=== PATIENT | male | born 1945 | race Caucasian/White ===

== ENCOUNTER 2019-05-01 13:58 | Outpatient (REF) | payer MEDICARE, OTHER, SELFPAY ==
[2019-05-02 12:12] LABS: Calculated LDL 121; Cholesterol 182 mg/dL (50-200); HDL Cholesterol 52 mg/dL (40-60); Triglyceride 46 mg/dL (30-150)
== END 2019-05-01 14:18 ==
LOC: NCHCN 13:58
PROVIDERS: PCP Nurse Practitioner Family; Visit Provider Family Medicine
DX: E78.5 Hyperlipidemia, unspecified (principal)
CPT/HCPCS: 80061; 83721

== ENCOUNTER 2021-11-01 17:17 | Outpatient (REF) | payer MEDICARE, SELFPAY ==
[2021-11-01 21:44] LABS: ALT 25 U/L (16-63); AST 15 U/L (15-37); Albumin 3.7 g/dL (3.4-5.0); Alkaline Phosphatase 96 U/L (46-116); Anion Gap 6.9 mmol/L (3-11); BUN 16 mg/dL (7-18); Bilirubin, Total 0.4 mg/dL (0.2-1.0); CO2 29.1 mmol/L (21.0-32.0); Calcium 8.9 mg/dL (8.5-10.1); Calculated LDL 113 mg/dL (<100); Chloride 104 mmol/L (98-107); Cholesterol 184 mg/dL (<200); Glucose 91 mg/dL (74-106); HDL Cholesterol 49 mg/dL (40-60); Potassium 4.5 mmol/L (3.5-5.1); Sodium 140 mmol/L (136-145); Total Protein 6.2 g/dL (6.4-8.2); Triglyceride 110 mg/dL (<150)
== END 2021-11-01 17:18 | disposition home or self-care (01) ==
LOC: NCHCN 17:17
PROVIDERS: PCP Nurse Practitioner Family; Visit Provider Family Medicine
DX: E78.5 Hyperlipidemia, unspecified (principal)
CPT/HCPCS: 80053; 80061

== ENCOUNTER 2022-07-28 12:44 | Outpatient (REF) | payer MEDICARE, SELFPAY ==
[2022-07-28 22:24] LABS: Calculated LDL 115 mg/dL (<100); Cholesterol 182 mg/dL (<200); HDL Cholesterol 46 mg/dL (40-60); Triglyceride 106 mg/dL (<150)
[2022-07-31 08:47] LABS: PSA, Screening 2.6 ng/mL (<=6.5)
== END 2022-07-28 12:45 | disposition home or self-care (01) ==
LOC: NCHCN 12:44
PROVIDERS: PCP Nurse Practitioner Family; Visit Provider Family Medicine
DX: E78.5 Hyperlipidemia, unspecified (principal); Z12.5 Encounter for screening for malignant neoplasm of prostate
CPT/HCPCS: 80061; 84153

== ENCOUNTER 2023-12-04 18:37 | Outpatient (REF) | payer MEDICARE, SELFPAY ==
[2023-12-04 22:06] LABS: HCT 43.7 % (40.0-50.0); HGB 14.8 g/dL (13.5-17.5); MCH 31.6 pg (27.0-33.0); MCHC 33.9 % (32.0-36.0); MCV 93 fL (80-95); MPV 11.6 fL (8.0-11.0); Platelet Count 252 10^3/uL (130-400); RBC 4.69 10^6/uL (4.36-5.78); RDW 12.3 % (11.8-14.1); RDW-SD 42.3 fL; WBC 6.71 10^3/uL (4.4-10.8)
[2023-12-04 22:14] LABS: ESR 13 mm/hr (0-20)
[2023-12-04 22:29] LABS: ALT 25 U/L (16-63); AST 21 U/L (15-37); Albumin 3.3 g/dL (3.4-5.0); Alkaline Phosphatase 99 U/L (46-116); Anion Gap 5.5 mmol/L (3-11); BUN 17 mg/dL (7-18); Bilirubin, Total 0.4 mg/dL (0.2-1.0); C-Reactive Protein 0.85 mg/dL (0.0-0.3); CO2 30.5 mmol/L (21.0-32.0); CREATININE 0.9 mg/dL (0.70-1.30); Calcium 9.2 mg/dL (8.5-10.1); Chloride 106 mmol/L (98-107); Estimated GFR 86.34 (mL/min/1.73m2); Glucose 98 mg/dL (74-106); Potassium 4.6 mmol/L (3.5-5.1); Sodium 142 mmol/L (136-145); Total Protein 6.9 g/dL (6.4-8.2)
== END 2023-12-04 18:38 | disposition home or self-care (01) ==
LOC: NCHCN 18:37
PROVIDERS: PCP Nurse Practitioner Family; Visit Provider Family Medicine
DX: R53.83 Other fatigue (principal)
CPT/HCPCS: 80053; 85027; 85652; 86140

== ENCOUNTER 2024-07-25 18:29 | Outpatient (REF) | payer MEDICARE, SELFPAY ==
[2024-07-25 21:55] LABS: HCT 48.5 % (40.0-50.0); HGB 16.3 g/dL (13.5-17.5); MCH 32.4 pg (27.0-33.0); MCHC 33.6 % (32.0-36.0); MCV 96 fL (80-95); Platelet Count 196 10^3/uL (130-400); RBC 5.03 10^6/uL (4.36-5.78); RDW 12.7 % (11.8-14.1); RDW-SD 45.1 fL; WBC 12.85 10^3/uL (4.4-10.8)
[2024-07-25 21:57] LABS: Bilirubin Small (Negative); Blood Trace-intact (Negative); Clarity Sl Cloudy (Clear); Glucose Negative (Negative); Ketones 80 mg/dL (Negative); Leukocyte Esterase Large (Negative); Nitrite Negative (Negative); Urobilinogen 0.2 mg/dL (Up to 0.2); pH 5.5 (5-8)
[2024-07-25 22:08] LABS: C & S Indicated? Yes; WBC >50 HPF (0-5)
[2024-07-25 22:21] LABS: ALT 25 U/L (16-63); AST 16 U/L (15-37); Albumin 3.8 g/dL (3.4-5.0); Alkaline Phosphatase 107 U/L (46-116); Anion Gap 9.2 mmol/L (3-11); BUN 15 mg/dL (7-18); Bilirubin, Total 1.19 mg/dL (0.2-1.0); CO2 30.8 mmol/L (21.0-32.0); Calcium 9.2 mg/dL (8.5-10.1); Chloride 101 mmol/L (98-107); Estimated GFR 75.61 (mL/min/1.73m2); Glucose 120 mg/dL (74-106); Potassium 4.2 mmol/L (3.5-5.1); Sodium 141 mmol/L (136-145); TSH (W/Ref FT4) 0.64 uIU/mL (0.36-3.74); Total Protein 6.9 g/dL (6.4-8.2)
[2024-07-28 08:52] LABS: PSA, Diagnostic 1.9 ng/mL (<=6.5)
== END 2024-07-25 18:30 | disposition home or self-care (01) ==
LOC: NCHCN 18:29
PROVIDERS: PCP Nurse Practitioner Family; Visit Provider Family Medicine
DX: R53.81 Other malaise (principal); R35.1 Nocturia
CPT/HCPCS: 80053; 85027; 87077; 81003; 81015; 84153; 84443; 87086; 87186

== ENCOUNTER 2024-08-08 13:57 | Outpatient (REF) | payer MEDICARE, SELFPAY ==
--- NOTE | 2024-08-08 10:10 | SKI_PTH ---
PATIENT: Claudio Cantrell LOC: [facility] U#:[id number] AGE/SX: 79/M ROOM: RE08/08/[address]: Katherin Gaming : 1945 BED: DIS: 08/08/2024 SPEC #: [id number] RECD: 08/11/24 12:30 STATUS: KERI REBakari #: [id number] RENITA: 08/08/24 10:[address]: Katherin Gaming DEPT: Surgical Specimen RECD BY: Glendy Salas ENTERED: 08/11/24 12:31 SP TYPE: ANNMARIE GOMES DR: Julissa Cordon Tissues: 1 - SKIN BIOPSY(SHAVE/PUNCH) 2 - SKIN BIOPSY(SHAVE/PUNCH) Procedures: SKIN LEVEL 4 Comments: [id number]
== END 2024-08-08 13:58 | disposition home or self-care (01) ==
LOC: NCHCN 13:57
PROVIDERS: PCP Nurse Practitioner Family; Visit Provider Family Medicine
DX: D48.5 Neoplasm of uncertain behavior of skin (principal); C44.219 Basal cell carcinoma of skin of left ear and external auricular canal
CPT/HCPCS: 88305

== ENCOUNTER 2025-05-25 15:48 | Outpatient (REF) | payer MEDICARE, SELFPAY ==
[2025-05-25 15:47] LABS: HCT 46.9 % (40.0-50.0); HGB 15.6 g/dL (13.5-17.5); MCH 31.5 pg (27.0-33.0); MCHC 33.3 % (32.0-36.0); MCV 95 fL (80-95); MPV 11.8 fL (8.0-11.0); Platelet Count 200 10^3/uL (130-400); RBC 4.96 10^6/uL (4.36-5.78); RDW 12.6 % (11.8-14.1); RDW-SD 43.4 fL; WBC 5.31 10^3/uL (4.4-10.8)
[2025-05-25 15:50] LABS: ESR 2 mm/hr (0-20)
[2025-05-25 16:05] LABS: ALT 26 U/L (16-63); AST 18 U/L (15-37); Albumin 3.8 g/dL (3.4-5.0); Alkaline Phosphatase 105 U/L (46-116); Anion Gap 4.5 mmol/L (3-11); BUN 13 mg/dL (7-18); Bilirubin, Total 0.7 mg/dL (0.2-1.0); CO2 31.5 mmol/L (21.0-32.0); Calcium 8.8 mg/dL (8.5-10.1); Chloride 104 mmol/L (98-107); Estimated GFR 88.91 (mL/min/1.73m2); Glucose 85 mg/dL (74-106); NT-proBNP 79 pg/mL (<300); Potassium 4.2 mmol/L (3.5-5.1); Sodium 140 mmol/L (136-145); Total Protein 6.5 g/dL (6.4-8.2)
[2025-05-25 23:07] LABS: CRP, High Sensitivity 0.67 mg/L (See Note)
[2025-05-26 09:26] LABS: PSA, Diagnostic 1.8 ng/mL (<=6.5)
== END 2025-05-25 15:49 | disposition home or self-care (01) ==
LOC: NCHCN 15:48
PROVIDERS: Visit Provider Family Medicine
DX: R53.83 Other fatigue (principal); N40.1 Benign prostatic hyperplasia with lower urinary tract symptoms; I45.2 Bifascicular block; R35.1 Nocturia
CPT/HCPCS: 80053; 85027; 85652; 86141; 83880; 84153